=== PATIENT | female | born 1990 | race Caucasian/White ===

== ENCOUNTER → 2024-02-22 09:46 | Outpatient (CLI) | payer BC, SELFPAY ==
[2024-02-22 10:47] LABS: Add Manual Diff / Slide Review NO; Basophils Absolute Auto 0 /uL (0-100); Basophils Percent Auto 0.2 % (0-2); Eosinophils Absolute Auto 0 /uL (0-450); Eosinophils Percent Auto 0.2 % (2-4); Hematocrit 40.1 % (36-46); Hemoglobin 13.7 g/dL (12.0-16.0); Lymphocytes Absolute Auto 2400 /uL (1100-4500); Lymphocytes Percent Auto 26.7 % (25-40); Mean Corpuscular HGB Conc 34.2 % (30-36); Mean Corpuscular Hemoglobin 30.4 PG (26-34); Monocytes Absolute Auto 1100 /uL (0-900); Neutrophils Absolute Auto 5500 /uL (1500-7000); Neutrophils Percent Auto 60.9 % (50-75); Platelet Count 208 X10^3/uL (150-400); Red Blood Cell Count 4.51 X10^6/uL (4.0-5.2); Red Cell Distribution Width 13.1 % (11.6-14.8); White Blood Cell Count 9.1 X10^3/uL (4.5-11.0)
[2024-02-22 10:56] LABS: Alanine Aminotransferase 7 IU/L (<35); Albumin 4.4 g/dL (3.5-5.0); Albumin Globulin Ratio 1.6 (1.0-2.8); Alkaline Phosphatase 54 U/L (38-126); Aspartate Aminotransferase 19 IU/L (14-36); BUN Creatinine Ratio 12.9 (6-22); Bilirubin Total 0.7 mg/dL (0.2-1.3); Blood Urea Nitrogen 8 mg/dL (7-17); Calcium 8.9 mg/dL (8.4-10.2); Carbon Dioxide 24 mmol/L (22-32); Chloride 105 mmol/L (98-107); Estimated Glomerular Filt Rate > 60 mL/min (>60); Globulin 2.7 g/dL (1.7-4.1); Glucose 92 mg/dL (70-100); HEMOLYSIS < 15 (0-50); Potassium 3.7 mmol/L (3.4-5.1); Sodium 136 mmol/L (137-145); Total Protein 7.1 g/dL (6.3-8.2)
[2024-02-22 11:25] LABS: TSH w/ Reflex to FT4 1.63 uIU/mL (0.47-4.68)
[2024-02-27 19:07] LABS: Deamidated Gliadin Ab IgA 7 units (0-19); Deamidated Gliadin Ab IgG 5 units (0-19); Immunoglobulin A,Qn 172 mg/dL (87-352); t-Transglutaminase IgA 2 U/mL (0-3)
== END ==
PROVIDERS: PCP Family Medicine; Referring Provider Family Medicine; Visit Provider Family Medicine
DX: K58.9 Irritable bowel syndrome, unspecified (principal); F32.9 Major depressive disorder, single episode, unspecified; F41.1 Generalized anxiety disorder; K64.9 Unspecified hemorrhoids; Z91.018 Allergy to other foods; Z91.012 Allergy to eggs; Z91.011 Allergy to milk products; F32.1 Major depressive disorder, single episode, moderate
CPT/HCPCS: 36415; 80053; 82784; 83516; 84443; 85025

== ENCOUNTER → 2024-04-10 12:47 | Outpatient (CLI) | payer BC, SELFPAY ==
--- NOTE | 2024-04-14 16:14 | DIET.OUTPTC ---
Dietary Outpatient Consultation Note Consultation Date: 04/10/2024 Assessment: 33 y F referred to dietitian for K58.9 - Irritable bowel syndrome, unspecified, Z91.018 - Allergy to other foods. Gisella reports previously having hemorrhoids d/t constipation. Since January, has been doing 25-30 g fiber a day and constipation has resolved. Now has 1-2 normal BM per day. Denies nausea, vomiting, constipation, diarrhea. Notes bloating after eating after almost every meal and lots of stomach gurgling. Stomach gurgling leads her to eat earlier in evening to stop gurgling by bedtime. No abdominal pain. Had an incident of sharp abd cramps 6 months ago r/t to constipation. None since. No recent change in bowel movements. No heartburn/acid reflux reported. Reports concern for food allergies/intolerances. Suspect soy, but uncertain if there are other foods that are causing symptoms. Symptoms experience are dry mouth, tingling in mouth, red, itchy face and neck, red spots on face afterwards. This has started in the last 4-6 months. Travels a lot for work. Will start work travel again in May 2024. During traveling, eats dinner with coworkers out to eat. Is not feasible to eliminate foods like all soy products d/t eating out. Has referral sent to GI. Discussed allergists. Diet recall: 8a- vitamin D, maegan supplement, probiotic 9:30-10a: granola and yogurt and dried fruit and nuts or on busy morning- nuts Lunch: sandwich or leftovers or cheese, meats, crackers and veggies Snack Dinner: 4-6p-pasta or soup homemade or fast food if working late ice cream or cookies [address] harrell 1 in morning 1 in afternoon 64 oz water/day at night: vitamin c, calcium, ashwagandha, my community mushroom defense has been taking these supplements for 1-2 yrs before allergy symptoms started occurring Ht: 5 ft 11 in Wt: 134 lb 6 oz BMI: 18.7 UBW: - Nutrition Diagnosis: food and nutrition related knowledge deficit r/t new food allergy/intolerance aeb pt report Interventions: 1. Discussed elimination and challenge test for food allergies/intolerance to help direct nutrition educ Including the stages, with first starting with an exposure diary for 5-7 days 2. Discussed nutritional management for bloating (eating, types of beverages, fluid, speed of eating, routine meals, ) Goals: exposure diary for 5-7 days (provided handout & instructions) to help identify potential allergy/intolerance causes, adequate fluids 64-80 oz, Monitoring/Evaluations: f/u in 1 month, pt will complete exposure diary when holidays are over and food choices returned to normal Electronically Signed by: Ida Borrero 04/14/24 16:14 Clinical Dietitian [address] [address]
== END ==
LOC: DIET 12:48
PROVIDERS: PCP Family Medicine; Referring Provider Family Medicine
DX: K58.9 Irritable bowel syndrome, unspecified (principal); Z91.018 Allergy to other foods; Z71.3 Dietary counseling and surveillance; Z87.19 Personal history of other diseases of the digestive system; Z68.1 Body mass index [BMI] 19.9 or less, adult
CPT/HCPCS: 97802

== ENCOUNTER → 2024-05-21 14:02 | Outpatient (CLI) | payer BC, SELFPAY ==
--- NOTE | 2024-05-21 15:20 | DIET.OUTPTC ---
Dietary Outpatient Consultation Note Consultation Date: 05/21/2024 Assessment: 33 y F referred to dietitian for K58.9 - Irritable bowel syndrome, unspecified, Z91.018 - Allergy to other foods. Went to GI doctor and was dx with celiac disease. GI recc GFD. This was started on 05/12/24. Has started GFD and since has already noticed an improvement in some GI distress symptoms. Patient feels confident in following a GFD. Has already made plan for when traveling, talked with friends/co-workers on GFD, and done lots of research on the topic. Had a few questions regarding labeling, but otherwise upon assessment of knowledge of GFD patient was knowledgeable and also aware of points of cross contact and avoiding cross contact. Reports stool being 2-3 on [place] stool chart, sometimes 4. Working to maintain adequate fiber with diet changes. Ht: 5 ft 11 in Wt: 134 lb 6 oz BMI: 18.7 UBW: - Nutrition Diagnosis: food and nutrition related knowledge deficit r/t new diagnosis aeb per patient, new dx of celiac disease Interventions: 1. Reviewed horner points of gluten free diet, cross contact - patient already knowledge 2. Discussed labeling for GF products 3. Discussed fiber Goals: GFD, f/u with GI as recc, 25-28 g fiber/day Monitoring/Evaluations: f/u in October Electronically Signed by: Ida Borrero 05/21/24 15:20 Clinical Dietitian [address] [id number]
== END ==
LOC: DIET 14:03
PROVIDERS: PCP Family Medicine; Referring Provider Family Medicine
DX: K58.9 Irritable bowel syndrome, unspecified (principal); K90.0 Celiac disease; Z91.018 Allergy to other foods; Z68.1 Body mass index [BMI] 19.9 or less, adult; Z71.3 Dietary counseling and surveillance
CPT/HCPCS: 97803

== ENCOUNTER → 2024-10-16 11:02 | Outpatient (CLI) | payer BC, SELFPAY ==
--- NOTE | 2024-10-16 11:04 | DI.RAD.S_ITS ---
PROCEDURE: XR FOOT LT MIN 3V INDICATIONS: Foot injury TECHNIQUE: 3 views of the foot were acquired. COMPARISON: None. FINDINGS: Bones: There is a mildly displaced transverse fracture involving the base of the 5th metatarsal. There is mild intra-articular involvement. Soft tissues: Mild soft tissue swelling is seen. IMPRESSION: Transverse fracture of the proximal 5th metatarsal, with intra-articular involvement and mild displacement. Dictated by: Gerber Krueger M.D. on 10/16/2024 at 10:35 Approved by: Gerber Krueger M.D. on 10/16/2024 at 10:36
== END ==
PROVIDERS: PCP Family Medicine; Referring Provider Family Medicine; Visit Provider Family Medicine
DX: S92.355D Nondisplaced fracture of fifth metatarsal bone, left foot, subsequent encounter for fracture with routine healing (principal); X58.XXXD Exposure to other specified factors, subsequent encounter
CPT/HCPCS: 73630

== ENCOUNTER 2025-04-13 02:46 | Emergency (ER) | payer BC, SELFPAY ==
[2025-04-13 02:56] VITALS: BP 137/79; PULSE 94; RESP 16; TEMP 37; O2SAT 96; BMI 18.9
--- NOTE | 2025-04-13 03:05 | ED.WOUNDLAC ---
HPI - Wound/Laceration General Chief Complaint: Wound/Laceration Stated Complaint: R Hand Finger Laceration Time Seen by Provider: 04/13/25 02:56 Source: patient Mode of arrival: Ambulatory History of Present Illness HPI narrative: 34-year-old female with a history of right index finger laceration from a mandoline slicer where a surface piece of her skin on the ventral side of the index finger got sliced. Patient denies any other injury and is neurovascularly intact. This occurred roughly a few hours ago. Related Data Home Medications ?Medication ?Instructions ?Recorded ?Confirmed calcium PO 12/31/23 12/08/24 maegan PO 12/31/23 12/08/24 iron PO 12/31/23 12/08/24 valerian root PO 12/31/23 12/08/24 vitamin C PO 12/31/23 12/08/24 vitamin D PO 12/31/23 12/08/24 Allergies Allergy/AdvReac Type Severity Reaction Status Date / Time egg yolk Allergy Intermediate Hives Verified 04/13/25 02:55 monocycline AdvReac Mild vertigo Uncoded 04/13/25 02:55 Review of Systems Review of Systems ROS Unobtainable: All systems reviewed & are unremarkable except as noted in HPI and below Patient History Smoking Status: Never smoker Exam Narrative Exam Narrative: General: Patient appears to be in no acute distress, acting appropriately Head: normocephalic, atraumatic, HEENT: Pupils equal round reactive, eyes tracking well, neck supple, no JVD Heart: regular rate and rhythm, no murmurs, rubs, or gallops heard Lungs: clear to auscultation, no adventitious sounds Abdomen: soft , nontender, nondistended, positive bowel sounds Neurological: no focal neurological signs, moving all extremities well, alert and oriented x3, Psych: good judgment ,good insight, mood is normal. right hand: pointer finger has fat pad area superficially sliced on ventral area, actively bleeding a little. Initial Vital Signs Initial Vital Signs: Vital Signs Temperature 98.6 F 04/13/25 02:56 Pulse Rate 94 H 04/13/25 02:56 Respiratory Rate 16 04/13/25 02:56 Blood Pressure 137/79 04/13/25 02:56 Pulse Oximetry 96 04/13/25 02:56 Oxygen Delivery Method Room Air 04/13/25 02:56 Course Orders Ordered: Discontinued Medications Diphtheria/Tetanus/Acell Pertussis (Tet,Diph,Pertuss(Acell),Vac/Pf 0.5 Ml Syringe) 0.5 ml IM .ONCE ONE Stop: 04/13/25 02:56 Vital Signs Vital signs: Vital Signs - 8 hr 04/13/25 02:56 Temperature 98.6 F Pulse Rate 94 H Respiratory Rate 16 Blood Pressure 137/79 Pulse Oximetry 96 Oxygen Delivery Method Room Air MDM - Wound/Laceration MDM Narrative Medical decision making narrative: 34-year-old female who sliced part of her fat pad on the pointer finger of her right hand using a [employer] Labs[employer] slicer. Patient reassured that the underneath exposed area we will regrow new skin and the overlying skin will eventually and fall off. Warned about infection signs. Follow up if any new or worsening symptoms. Patient given a tetanus booster as well and wound care done by nurse. Discharge Plan Departure Patient Disposition: Home Clinical Impression: Finger abrasion Qualifiers: Encounter type: initial encounter Qualified Code(s): S60.419A - Abrasion of unspecified finger, initial encounter Instructions: DI for Abrasion Activity Restrictions/Additional Instructions: Keep area dry and clean with fresh gauze daily. keep covered to prevent infection. Look out for signs of infection including warmth redness or any sort of oozing. Follow up for any new or worsening symptoms. Prescriptions: No Action maegan PO iron PO calcium PO vitamin C PO vitamin D PO valerian root PO Referrals: Nelsy Donnelly MD [Primary Care Provider, Family Practice] Stand Alone Forms: Patient Portal/API
[2025-04-13] MEDS: TET,DIPH,PERTUSS(ACELL),VAC/PF 0.5 ML SYRINGE IM (03:10)
--- NOTE | 2025-04-13 03:14 | PC.NURSE ---
pt cut finger tip of the 2nd digit of the right hand skin flap noted to tip of finger, irrigated with saline, steri strips applied and wrapped with telfa and cling. pt has no motor or sensory deficits noted
== END 2025-04-13 03:16 | disposition home or self-care (01) ==
PROVIDERS: Emergency Provider Family Medicine; PCP Family Medicine
DX: S61.210A Laceration without foreign body of right index finger without damage to nail, initial encounter (principal); Z23 Encounter for immunization; W27.8XXA Contact with other nonpowered hand tool, initial encounter
CPT/HCPCS: 99283; 90715